=== PATIENT | female | born 1935 | race Caucasian/White ===

== ENCOUNTER → 2016-09-12 | Outpatient (CLI) | payer MEDICARE ==
[~2016-09-12] VITALS: Ht 162.6 cm; Wt 81.6 kg
[~2016-09-12] MED LIST: ACET-2469 PO; AMLO2.5T PO; CITA10TA7 PO; DENOSUMAB 60 MG/1 ML (PROLIA) SQ ONE; ERGO400C PO; LABE100T2 PO; LOSA100T28 PO; PRD1T PO; SIMV40TA4 PO
[2016-09-13 10:45] VITALS: BP 167/92
== END ==
LOC: SDC 13:06
PROVIDERS: ATTEND Internal Medicine
DX: M81.0 Age-related osteoporosis without current pathological fracture (principal)
CPT/HCPCS: 96372

== ENCOUNTER 2017-08-18 11:19 | Outpatient (RCR) | payer MEDICARE ==
[~2017-08-18 11:19] MED LIST changes: -DENOSUMAB 60 MG/1 ML (PROLIA) SQ ONE
== END 2017-08-18 12:04 | disposition home or self-care (01) ==
PROVIDERS: ATTEND Orthopaedic Surgery
DX: M19.011 Primary osteoarthritis, right shoulder (principal); M75.101 Unspecified rotator cuff tear or rupture of right shoulder, not specified as traumatic; M75.102 Unspecified rotator cuff tear or rupture of left shoulder, not specified as traumatic; R29.6 Repeated falls

== ENCOUNTER 2018-01-08 09:45 | Outpatient (RCR) | payer MEDICARE, OTHER | END 2018-01-09 | disposition home or self-care (01) | PROVIDERS: ATTEND Nurse Practitioner Family | DX: Z47.1 Aftercare following joint replacement surgery (principal); Z96.612 Presence of left artificial shoulder joint ==

== ENCOUNTER 2018-08-02 18:35 | Emergency (ER) | payer MEDICARE ==
[~2018-08-02] VITALS: Ht 162.6 cm; Wt 78.9 kg
[~2018-08-02 18:35] MED LIST changes: -AMLO2.5T PO; +AMLO2.5T3 PO; -LABE100T2 PO; +LABE100T6 PO; -LOSA100T28 PO; +LOSA100T8 PO
--- NOTE | 2018-08-02 18:53 | ED GU-Female ---
General Chief Complaint: -Female Stated Complaint: LOWER ABD PAIN Source: patient Exam Limitations: no limitations History of Present Illness Date Seen by Provider: Aug 02, 2018 Time Seen by Provider: 18:52 Initial Comments To ER per private vehicle from home with reports of suprapubic abdominal pain since about 3 PM today. This morning upon awakening she didn't feel well. She laid down and took a nap this afternoon and upon awakening from that head pain. No nausea or vomiting. No fevers or chills. No flank pain. She does have burning on urination and urinary frequency. Timing/Duration: this afternoon Severity/Quality: moderate Location: unknown Radiation: none Activities at Onset: none Associated Symptoms: abdominal pain, dysuria; No fever/chills, No lower back pain, No nausea/vomiting; urinary frequency Allergies and Home Medications Allergies Coded Allergies: Penicillins (Verified Allergy, Unknown, 09/13/16) Sulfa (Sulfonamide Antibiotics) (Verified Allergy, Unknown, 09/13/16) erythromycin base (Verified Allergy, Unknown, 09/13/16) iodine (Verified Allergy, Unknown, 09/13/16) Home Medications Acetaminophen/Diphenhydramine 1 Each Tablet, 2 EACH PO HS, (Reported) Amlodipine Besylate 2.5 Mg Tablet, 2.5 MG PO DAILY, (Reported) Cefuroxime Axetil 250 Mg Tablet, 250 MG PO BID Prescribed by: АННА LEVY on 08/02/181923 Cholecalciferol (Vitamin D3) 400 Unit Capsule, 400 UNIT PO DAILY, (Reported) Citalopram Hydrobromide 10 Mg Tablet, 10 MG PO DAILY, (Reported) Labetalol HCl 100 Mg Tablet, 100 MG PO BID, (Reported) Losartan Potassium 100 Mg Tablet, 100 MG PO DAILY, (Reported) Phenazopyridine HCl 100 Mg Tablet, 100 MG PO BID PRN for PAIN-MILD Prescribed by: АННА LEVY on 08/02/181924 Prednisone 1 Mg Tab, 6.5 MG PO DAILY, (Reported) Simvastatin 40 Mg Tablet, 40 MG PO TID, (Reported) Patient Home Medication List Home Medication List Reviewed: Yes Review of Systems Review of Systems Constitutional: see HPI; No chills, No fever EENTM: see HPI Respiratory: no symptoms reported Cardiovascular: no symptoms reported Genitourinary: see HPI, burning, dysuria, frequency Musculoskeletal: no symptoms reported Skin: no symptoms reported Psychiatric/Neurological: No Symptoms Reported Past Xfplwld-[id number]-[id number] Hx Patient Social History Alcohol Use: Denies Use Recreational Drug Use: No Smoking Status: Never a Smoker Recent Foreign Travel: No Contact w/Someone Who Travel: No Recent Hopitalizations: No Past Medical History Hypertension Physical Exam Vital Signs Vital Signs - First Documented 08/02/18 18:52 Temp 97.6 Pulse 65 Resp 18 B/P (MAP) 192/73 (112) Pulse Ox 97 O2 Delivery Room Air Capillary Refill : Height, Weight, BMI Height: 5'4.00" Weight: 180lbs. 0.0oz. [id number]; 30.9 BMI Method: General Appearance: WD/WN, no apparent distress Neck: non-tender, full range of motion Respiratory: no respiratory distress, no accessory muscle use Gastrointestinal: normal bowel sounds, soft, tenderness (suprapubic) Extremities: normal range of motion, non-tender Neurologic/Psychiatric: alert, normal mood/affect, oriented x 3 Skin: normal color, warm/dry Progress/Results/Core Measures Suspected Sepsis SIRS Temperature: Pulse: Respiratory Rate: Laboratory Tests 08/02/18 19:05: White Blood Count 6.0 Blood Pressure / Mean: Laboratory Tests 08/02/18 19:05: Creatinine 0.86, Platelet Count 302, Total Bilirubin 0.5 Results/Orders Lab Results Laboratory Tests Test 08/02/18 18:49 08/02/18 19:05 Range/Units Urine Color YELLOW Urine Clarity VERY CLOUDY H Urine pH 5 5-9 Urine Specific [place] 1.020 1.016-1.022 Urine Protein 2+ H NEGATIVE Urine Glucose (UA) NEGATIVE NEGATIVE Urine Ketones NEGATIVE NEGATIVE Urine Nitrite POSITIVE H NEGATIVE Urine Bilirubin NEGATIVE NEGATIVE Urine Urobilinogen NORMAL NORMAL MG/DL Urine Leukocyte Esterase 3+ H NEGATIVE Urine RBC (Auto) 4+ H NEGATIVE Urine RBC 10-25 H /HPF Urine WBC TNTC H /HPF Urine Crystals NONE /LPF Urine Bacteria MODERATE H /HPF Urine Casts NONE /LPF Urine Mucus NEGATIVE /LPF Urine Culture Indicated YES White Blood Count 6.0 4.3-11.0 10^3/uL Red Blood Count 3.36 L 4.35-5.85 10^6/uL Hemoglobin 10.9 L 11.5-16.0 G/DL Hematocrit 34 L 35-52 % Mean Corpuscular Volume 100 H 80-99 FL Mean Corpuscular Hemoglobin 32 25-34 PG Mean Corpuscular Hemoglobin Concent 33 32-36 G/DL Red Cell Distribution Width 12.6 10.0-14.5 % Platelet Count 302 130-400 10^3/uL Mean Platelet Volume 10.4 7.4-10.4 FL Neutrophils (%) (Auto) 67 42-75 % Lymphocytes (%) (Auto) 18 12-44 % Monocytes (%) (Auto) 14 H 0-12 % Eosinophils (%) (Auto) 1 0-10 % Basophils (%) (Auto) 0 0-10 % Neutrophils # (Auto) 4.0 1.8-7.8 X 10^3 Lymphocytes # (Auto) 1.1 1.0-4.0 X 10^3 Monocytes # (Auto) 0.8 0.0-1.0 X 10^3 Eosinophils # (Auto) 0.1 0.0-0.3 10^3/uL Basophils # (Auto) 0.0 0.0-0.1 10^3/uL Sodium Level 136 135-145 MMOL/L Potassium Level 4.3 3.6-5.0 MMOL/L Chloride Level 102 98-107 MMOL/L Carbon Dioxide Level 23 21-32 MMOL/L Anion Gap 11 5-14 MMOL/L Blood Urea Nitrogen 23 H 7-18 MG/DL Creatinine 0.86 0.60-1.30 MG/DL Estimat Glomerular Filtration Rate > 60 BUN/Creatinine Ratio 27 Glucose Level 98 70-105 MG/DL Calcium Level 9.5 8.5-10.1 MG/DL Corrected Calcium 9.3 8.5-10.1 MG/DL Total Bilirubin 0.5 0.1-1.0 MG/DL Aspartate Amino Transf (AST/SGOT) 17 5-34 U/L Alanine Aminotransferase (ALT/SGPT) 18 0-55 U/L Alkaline Phosphatase 60 40-136 U/L Total Protein 6.8 6.4-8.2 GM/DL Albumin 4.2 3.2-4.5 GM/DL My Orders Orders - АННА LEVY [employer] Cbc With Automated Diff (08/02/18 18:51) Comprehensive Metabolic Panel (08/02/18 18:51) Ua Culture If Indicated (08/02/18 18:51) Urine Culture (08/02/18 18:49) Phenazopyridine Tablet (Pyridium Tablet) (08/02/18 19:30) Ceftriaxone For Im Use (Rocephin For Im (08/02/18 19:30) Ceftriaxone For Iv Use (Rocephin For I (08/02/18 19:22) Medications Given in ED Current Medications Medications Dose Ordered Sig/Rashmi Route Start Time Stop Time Status Last Admin Dose Admin Ceftriaxone Sodium 1,000 mg STK-MED ONCE .ROUTE 08/02/18 19:22 08/02/18 19:26 DC 08/02/18 19:35 1,000 MG Phenazopyridine HCl 100 mg ONCE ONCE PO 08/02/18 19:30 08/02/18 19:31 DC 08/02/18 19:34 100 MG Vital Signs/I&O 08/02/18 18:52 Temp 97.6 Pulse 65 Resp 18 B/P (MAP) 192/73 (112) Pulse Ox 97 O2 Delivery Room Air Capillary Refill : Departure Impression Primary Impression: Urinary tract infection Qualified Codes: N30.00 - Acute cystitis without hematuria Disposition: HOME, SELF-CARE Condition: Stable Departure-Patient Inst. Decision time for Depature: 19:18 Referrals: YADIRA REYEZ MD (PCP/Family) Primary Care Physician Patient Instructions: Urinary Tract Infection, Adult (DC) Add. Discharge Instructions: 1. Return to ER for any concerns 2. Follow-up with your doctor next week All discharge instructions reviewed with patient and/or family. Voiced understanding. Scripts Phenazopyridine HCl (Pyridium) 100 Mg Tablet 100 MG PO BID PRN for PAIN-MILD, #4 TAB Prov: АННА LEVY [employer] 08/02/18 Cefuroxime Axetil (Cefuroxime) 250 Mg Tablet 250 MG PO BID, #10 TAB Prov: АННА LEVY [employer] 08/02/18 АННА LEVY [employer] Aug 02, 2018 18:53
[2018-08-02 18:56] LABS: BILIRUBIN,URINE NEGATIVE (NEGATIVE); CLARITY,URINE VERY CLOUDY; COLOR,URINE YELLOW; GLUCOSE, URINE (UA) NEGATIVE (NEGATIVE); KETONES,URINE NEGATIVE (NEGATIVE); LEUKOCYTE ESTERASE ,URINE 3+ (NEGATIVE); NITRITE,URINE POSITIVE (NEGATIVE); PH,URINE 5 (5-9); PROTEIN,URINE 2+ (NEGATIVE); UROBILINOGEN,URINE NORMAL (NORMAL)
[2018-08-02 19:11] LABS: BACTERIA,URINE MODERATE /HPF; WBC,URINE TNTC /HPF
[2018-08-02 19:12] LABS: BASOPHILS % (AUTO) 0 % (0-10); EOSINOPHILS # (AUTO) 0.1 10^3/uL (0.0-0.3); EOSINOPHILS % (AUTO) 1 % (0-10); HEMATOCRIT 34 % (35-52); HEMOGLOBIN 10.9 G/DL (11.5-16.0); LYMPHOCYTES # (AUTO) 1.1 X 10^3 (1.0-4.0); LYMPHOCYTES % (AUTO) 18 % (12-44); MEAN CORPUSCULAR HEMOGLOBIN 32 PG (25-34); MEAN CORPUSCULAR HGB CONC 33 G/DL (32-36); MEAN CORPUSCULAR VOLUME 100 FL (80-99); MEAN PLATELET VOLUME 10.4 FL (7.4-10.4); MONOCYTES # (AUTO) 0.8 X 10^3 (0.0-1.0); MONOCYTES % (AUTO) 14 % (0-12); NEUTROPHILS % (AUTO) 67 % (42-75); PLATELET COUNT 302 10^3/uL (130-400); RED BLOOD COUNT 3.36 10^6/uL (4.35-5.85); RED CELL DISTRIBUTION WIDTH 12.6 % (10.0-14.5)
[2018-08-02] MEDS ORDERED: cefTRIAXone 1 GM/10 ML for IV (ROCEPHIN) ONE (19:22)
[2018-08-02] MEDS ORDERED: CEFU250T80 PO (19:24)
[2018-08-02] MEDS ORDERED: PHEN-639 PO (19:25)
[2018-08-02 19:27] LABS: ALANINE AMINOTRANSFERASE 18 U/L (0-55); ALBUMIN 4.2 GM/DL (3.2-4.5); ALKALINE PHOSPHATASE 60 U/L (40-136); BILIRUBIN,TOTAL 0.5 MG/DL (0.1-1.0); BUN/CREATININE RATIO 27; CALCIUM 9.5 MG/DL (8.5-10.1); CARBON DIOXIDE 23 MMOL/L (21-32); CHLORIDE 102 MMOL/L (98-107); CREATININE SERUM 0.86 MG/DL (0.60-1.30); GFR ESTIMATED > 60; GLUCOSE 98 MG/DL (70-105); POTASSIUM 4.3 MMOL/L (3.6-5.0); SODIUM 136 MMOL/L (135-145); TOTAL PROTEIN 6.8 GM/DL (6.4-8.2)
[2018-08-02] MEDS ORDERED: PHENAZOPYRIDINE 100 MG (PYRIDIUM) TABLET PO ONE (19:30)
[2018-08-02] MEDS ORDERED: cefTRIAXone 1,000 MG/2.86 ml vial (IM ONLY) IM SCH (19:30)
[2018-08-02 19:51] VITALS: BP 186/67
== END 2018-08-02 19:51 | disposition home or self-care (01) ==
LOC: EDUNIT# 18:35 → ER 18:37
DX: N39.0 Urinary tract infection, site not specified (principal); Z88.0 Allergy status to penicillin; Z88.2 Allergy status to sulfonamides; Z91.041 Radiographic dye allergy status; Z79.52 Long term (current) use of systemic steroids
CPT/HCPCS: 36415; 80053; 81000; 85025; 87077; 87088; 87186; 96372; 99284

== ENCOUNTER 2018-08-09 11:23 | Outpatient (RCR) | payer MEDICARE ==
[~2018-08-09 11:23] MED LIST changes: -AMLO2.5T3 PO; +AMLO2.5T4 PO; +CEFU250T80 PO; +LOSA100T57 PO; -LOSA100T8 PO; +PHEN-639 PO
== END 2018-10-04 | disposition home or self-care (01) ==
PROVIDERS: ATTEND Internal Medicine
DX: M54.5 Low back pain (principal)

== ENCOUNTER 2018-12-17 08:56 | Outpatient (RCR) | payer MEDICARE | END 2019-01-09 13:23 | disposition home or self-care (01) | PROVIDERS: ATTEND Nurse Practitioner Family | DX: Z09 Encounter for follow-up examination after completed treatment for conditions other than malignant neoplasm (principal); Z96.611 Presence of right artificial shoulder joint ==

== ENCOUNTER 2020-07-30 13:44 | Outpatient (RCR) | payer MEDICARE ==
[~2020-07-30 13:44] MED LIST changes: -ACET-2469 PO; +ACET-3075 PO; +SIMV40TA25 PO; -SIMV40TA4 PO
== END 2020-09-14 10:25 | disposition home or self-care (01) ==
PROVIDERS: ATTEND Internal Medicine
DX: M54.5 Low back pain (principal); M25.559 Pain in unspecified hip

== ENCOUNTER 2021-04-19 14:46 | Outpatient (RCR) | payer MEDICARE | END 2021-06-15 | disposition home or self-care (01) | PROVIDERS: ATTEND Internal Medicine | DX: M54.2 Cervicalgia (principal) ==

== ENCOUNTER 2021-04-27 14:30 | Outpatient (RCR) | payer MEDICARE | END 2021-05-13 | disposition home or self-care (01) | PROVIDERS: ATTEND Physician Assistant | DX: M54.5 Low back pain (principal); I10 Essential (primary) hypertension; Z98.1 Arthrodesis status ==

== ENCOUNTER 2021-07-19 13:30 | Outpatient (RCR) | payer MEDICARE ==
[~2021-07-19 13:30] MED LIST changes: -CITA10TA7 PO; +CITA10TA9 PO
== END 2021-08-02 12:19 | disposition home or self-care (01) ==
PROVIDERS: ATTEND Internal Medicine
DX: R32 Unspecified urinary incontinence (principal); I10 Essential (primary) hypertension

== ENCOUNTER → 2021-07-22 | Outpatient (CLI) | payer MEDICARE ==
--- NOTE | 2021-07-22 16:23 | Diagnostic Imaging Report ---
PROCEDURE: US Renal Bilateral. TECHNIQUE: Multiple real-time grayscale images were obtained over the kidneys in various projections bilaterally. INDICATION: Incontinence. The right kidney measures 11.5 x 4.7 x 5.4 cm and the left kidney measures 9.5 x 4.1 x 4.9 cm. Cortical thickness and echogenicity appear normal. No calculi or hydronephrosis is identified. Bladder volume is 263 mL. Postvoid volume is 151 mL. The ureteral jets were not visualized. IMPRESSION: 1. Moderate-sized postvoid residual bladder volume. No other significant abnormality is seen. Dictated by: Dictated on workstation # [id number]
== END ==
LOC: RAD 14:45
PROVIDERS: ATTEND Nurse Practitioner Family
DX: N39.42 Incontinence without sensory awareness (principal); N30.00 Acute cystitis without hematuria
CPT/HCPCS: 76770

== ENCOUNTER 2021-08-09 13:03 | Outpatient (RCR) | payer MEDICARE | END 2021-08-20 | disposition home or self-care (01) | PROVIDERS: ATTEND Physician Assistant | DX: Z98.1 Arthrodesis status (principal) ==

== ENCOUNTER 2021-09-17 14:29 | Outpatient (RCR) | payer MEDICARE | END 2021-09-20 | disposition home or self-care (01) | PROVIDERS: ATTEND Internal Medicine | DX: M54.50 Low back pain, unspecified (principal); M54.2 Cervicalgia; I10 Essential (primary) hypertension ==

== ENCOUNTER 2021-10-11 13:03 | Outpatient (RCR) | payer MEDICARE | END 2021-10-18 | disposition home or self-care (01) | PROVIDERS: ATTEND Internal Medicine | DX: M54.50 Low back pain, unspecified (principal); M54.2 Cervicalgia; I10 Essential (primary) hypertension ==

== ENCOUNTER 2021-11-15 13:26 | Outpatient (RCR) | payer MEDICARE | END 2021-11-18 | disposition home or self-care (01) | PROVIDERS: ATTEND Internal Medicine | DX: M54.50 Low back pain, unspecified (principal); M54.2 Cervicalgia; I10 Essential (primary) hypertension ==

== ENCOUNTER 2021-12-08 14:28 | Outpatient (RCR) | payer MEDICARE | END 2021-12-18 | disposition home or self-care (01) | PROVIDERS: ATTEND Internal Medicine | DX: M54.50 Low back pain, unspecified (principal); M54.2 Cervicalgia; I10 Essential (primary) hypertension ==

== ENCOUNTER 2021-12-27 15:29 | Outpatient (RCR) | payer MEDICARE | END 2022-01-18 | disposition home or self-care (01) | PROVIDERS: ATTEND Internal Medicine | DX: M54.50 Low back pain, unspecified (principal); M54.2 Cervicalgia; I10 Essential (primary) hypertension ==

== ENCOUNTER 2022-02-16 14:22 | Outpatient (RCR) | payer MEDICARE | END 2022-02-17 | disposition home or self-care (01) | PROVIDERS: ATTEND Internal Medicine | DX: M54.50 Low back pain, unspecified (principal); M54.2 Cervicalgia; I10 Essential (primary) hypertension ==

== ENCOUNTER 2022-03-02 14:11 | Outpatient (RCR) | payer MEDICARE | END 2022-03-20 | disposition home or self-care (01) | PROVIDERS: ATTEND Internal Medicine | DX: M54.50 Low back pain, unspecified (principal); M54.2 Cervicalgia; I10 Essential (primary) hypertension ==

== ENCOUNTER 2023-01-10 13:30 | Outpatient (RCR) | payer MEDICARE ==
[~2023-01-10 13:30] MED LIST changes: -LABE100T6 PO; +LABE100T9 PO; -LOSA100T57 PO; +LOSA100T58 PO
== END 2023-01-18 | disposition home or self-care (01) ==
PROVIDERS: ATTEND Family Medicine
DX: R32 Unspecified urinary incontinence (principal); R10.2 Pelvic and perineal pain

== ENCOUNTER 2023-02-08 15:04 | Outpatient (RCR) | payer MEDICARE | END 2023-02-08 16:07 | disposition home or self-care (01) | PROVIDERS: ATTEND Family Medicine | DX: R32 Unspecified urinary incontinence (principal); R10.2 Pelvic and perineal pain ==